=== PATIENT | male | born 1970 | race Caucasian/White ===

== ENCOUNTER 2023-10-28 15:19 | Emergency (ER) | payer BC, SELFPAY ==
[2023-10-28 15:21] VITALS: BP 147/90
[2023-10-28 15:39] LABS: % Basophils 0.6 % (0-2); % Immature Granulocytes 0.3 % (0-0.5); % Lymphocytes 29.3 % (20.5-51.1); % Monocytes 10.4 % (1.7-9.3); % Neutrophils 57.4 % (42.2-75.2); Absolute Eosinophils 0.1 10^3/uL (0-0.7); Absolute Lymphocytes 2.1 10^3/uL (1.2-3.4); Absolute Monocytes 0.7 10^3/uL (0.1-0.6); Absolute Neutrophils 4.1 10^3/uL (1.4-6.5); Hematocrit 43.7 % (39.0-52.0); Hemoglobin 15.2 g/dL (13.0-18.0); Mean Corp Hgb Conc. 34.8 g/dL (33.0-37.0); Mean Corpuscular Hgb 31.7 pg (27.0-31.0); Mean Corpuscular Volume 91.2 fL (80.0-94.0); Mean Platelet Volume 9.3 fL (7.4-10.4); Nucleated Red Blood Cells % 0 % (-); Platelet Count 251 10^3/uL (130-400); Red Blood Cell Count 4.79 10^6/uL (4.70-6.10); Red Cell Dist. Width 12.3 % (11.5-14.5); White Blood Cell Count 7.1 10^3/uL (4.8-10.8)
[2023-10-28 15:51] LABS: ALT (SGPT) 60 U/L (0-50); AST (SGOT) 57 U/L (17-59); Albumin 4.4 g/dl (3.5-5.0); Alkaline Phosphatase 85 U/L (38-126); Blood Urea Nitrogen 19 mg/dl (9-20); Calcium 9.6 mg/dl (8.4-10.2); Carbon Dioxide 25 mmol/L (22-30); Chloride 103 mmol/L (98-107); Glucose 96 mg/dl (70-99); Potassium 4.6 mmol/L (3.5-5.1); Sodium 138 mmol/L (135-145); Total Bilirubin 0.5 mg/dl (0.2-1.3); Total Protein 7.4 g/dl (6.3-8.2); eGFR > 60.00
[2023-10-28 16:00] LABS: Troponin I < 0.012 ng/ml
[2023-10-28 19:41] VITALS: BP 159/85; BP 160/94; BP 165/98; PULSE 66; PULSE 67; PULSE 73
[2023-10-28 19:43] VITALS: BP 160/94
[2023-10-28 19:44] VITALS: BP 165/98
--- NOTE | 2023-10-28 19:46 | ED.GENMED ---
History of Present Illness
General
Chief Complaint: Fainting Sensation
Source: patient
Exam Limitations: none
Time Seen by Provider: 10/28/23 19:24
Travel History
Have you had any contact with someone who has COVID-19?: No
Do you have any symptoms of coronavirus? Fever > 100 degrees, chills, cough, shortness of breath, sore throat, loss of taste or smell, muscle aches, or headache?: No
History of Present Illness
History of Present Illness:
This is a 53yo male who presents after he developed lightheadedness while doing light exercise. he states he was doing some stretching and 'moving around' and felt dizzy. he then developed tingling in his head. he states that the whole process
lasted about 10 minutes. no cp. no sob. no palpitations. now feels well. states that he actually felt well enough to not come to the ER but his wanted him to get checked out. Of note, patient has a history of A-fib and states it felt nothing
like prior A-fib. Patient admits that he did take his blood pressure at home and initially was a little high but he had been exercising and then it normalized. He now feels well. Offers no complaints of numbness or tingling or motor weakness. He
does admit for the last few nights he has not been sleeping well. He also admits the symptoms occurred after standing up and he felt reassured by that as he thought about it in the waiting room.
Past History
Past History
ED Past Medical History: Arrthythmia (Atrial fib, ), HTN, Hypercholesterolemia and Other (aortic aneurysm that they are watching)
ED Past Surgical History: None
Social History
Tobacco: Non-smoker
Alcohol: None
Personal:
Living: with family
Phy Exam
Physical Exam
Physical Exam:
CONSTITUTIONAL Patient alert and oriented to person, place and time. Well-appearing. Vital signs reviewed.
HEAD atraumatic, normocephalic.
EYES eyelids normal to inspection, Pupils equally round and reactive to light, Extraocular muscles intact, Conjunctiva normal, Sclera normal.
NECK normal range of motion, Trachea midline, no jugular venous distention.
RESPIRATORY CHEST No respiratory distress noted, Chest expansion equal, Bilateral breath sounds clear.
CARDIOVASCULAR regular rate and rhythm, Heart sounds normal.
ABDOMEN No distention.
BACK normal inspection, no obvious deformities
UPPER EXTREMITY range of motion normal, Motor strength normal, no cyanosis, no edema.
LOWER EXTREMITY range of motion normal, Motor strength normal, no cyanosis, no edema.
NEURO Speech normal, No focal motor deficits, [place] coma scale 15, Memory normal, Cranial Nerves intact to screening exam.
SKIN skin warm, dry, and normal in color.
PSYCHIATRIC patient oriented to person place and time, Normal affect.
Course
Orders/Labs/Results
Orders:
Orders
10/28/23 15:23
Electrocardiogram (*1) Urgent
Reason for Study: Fatigue / Weakness
EKG- Treatment ONCE
10/28/23 15:30
Complete Blood Count/With Diff Urgent
Comprehensive Metabolic Panel Urgent
Troponin I Urgent
10/28/23 19:48
Troponin I Urgent
Abnormal Lab Results
10/28/23
15:30
MCH 31.7 H pg
(27.0-31.0)
Absolute Monos (auto) 0.7 H 10^3/uL
(0.1-0.6)
Monocytes % 10.4 H %
(1.7-9.3)
ALT 60 H U/L
(0-50)
10/28/23 15:30
10/28/23 15:30
Vital Signs
Initial and Last Documented VS:
Initial Vital Signs
Temp Pulse Resp BP Pulse Ox
98.2 F 70 18 147/90 97
10/28/23 15:21 10/28/23 15:21 10/28/23 15:21 10/28/23 15:21 10/28/23 15:21
Last Documented Vital Signs
Temp Pulse Resp BP Pulse Ox
98.2 F 67 18 135/90 96
10/28/23 15:21 10/28/23 20:00 10/28/23 20:00 10/28/23 20:00 10/28/23 19:44
MDM/Problems Addressed
MDM/Problems Addressed:
Dizziness
*Pulse Oximetry
Patient hypoxic: no
*EKG
Interpreted by ED Provider?: Yes
Interpretation: abnormal
Comparison EKG: no changes
Rate: normal
Rhythm: sinus
QRS Pattern: right bundle branch block
Ischemia: no ischemia
*Chopper Feeder Interpretation
Rate: normal
Interpretation: normal
Rhythm: sinus
*Critical Care Note
Total Time (30-74mins, 75-104mins- exclusive of procedures): Not Applicable
Data Reviewed
Source: patient
Further Testing Considered But Not Given:
Consider chest CT but no clinical concern for PE or aortic pathology
Patient Management
Escalation/DeEscalation of care consider admission/obs:
Patient denies a true Valsalva while. I do not suspect dissection. I do not suspect acute aortic pathology. He is a bit hypertensive and he will follow-up closely with this. I asked for follow-up in the avoidance of strenuous or exertional
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 All symptoms have resolved. His neurologic assessment is normal. His pupils are normal. EKG unremarkable. Labs grossly unremarkable.
ED Attending Note
-
Portions of this chart may have been created with voice recognition software.� Occasional wrong word or��sound alike� substitutions may have occurred due to the inherent limitations of voice recognition software.
Discharge Plan
Departure
Patient Disposition: Home (Routine Discharge)
Date of Disposition: 10/28/23
Time of Disposition: 20:40
Patient with high blood pressure during this ER visit?: Yes
Discharge Problem:
Dizziness
Instructions: Dizziness
Referrals:
Matthew Zhao, [Family Provider] -
Activity Restrictions/Additional Instructions:
Your blood pressure was elevated while in the Emergency Department, please have your doctor re-evaluate it in the next 48 hours as untreated hypertension may lead to serious complications.
Please avoid strenuous or exertional activity until seen and cleared by your doctor or fire battalion chief. Return immediately for chest pain, shortness of breath, palpitations, weakness of any kind, vision changes, numbness, tingling or any other
concerns.
Interventions
Interventions:
*Risk Screen - Suicide Last Done: 10/28/23 15:21
*General Assessment Last Done: 10/28/23 15:21
*Neglect/Abuse Screening Last Done: 10/28/23 15:21
ED- Fall Risk Assessment Last Done: 10/28/23 19:31
*ED COVID-19 Vaccine History Last Done: 10/28/23 15:21
ED- Cardiac Assessment Last Done: 10/28/23 19:31
ED- Neurological Assessment Last Done: 10/28/23 19:31
[2023-10-28 20:00] VITALS: BP 135/90
[2023-10-28 20:23] LABS: Troponin I < 0.012 ng/ml
== END 2023-10-28 21:03 | disposition home or self-care (01) ==
LOC: EMR 15:19
PROVIDERS: Emergency Medicine; EMERGENCY PHYSICIAN Emergency Medicine; FAMILY PHYSICIAN Family Medicine
DX: R42 Dizziness and giddiness (principal); R20.2 Paresthesia of skin; I10 Essential (primary) hypertension
CPT/HCPCS: 99284; 80053; 84484; 85025; 93005

== ENCOUNTER → 2024-08-25 08:00 | Outpatient (REF) | payer BC, SELFPAY | LOC: HWRCS 08:00 | PROVIDERS: ATTENDING PHYSICIAN Internal Medicine Cardiovascular Disease; FAMILY PHYSICIAN Family Medicine | DX: I48.91 Unspecified atrial fibrillation (principal); R06.02 Shortness of breath | CPT/HCPCS: 93306 ==

== ENCOUNTER 2024-10-16 17:28 | Emergency (ER) | payer OTHER, SELFPAY ==
[2024-10-16 17:29] VITALS: BP 182/99
--- NOTE | 2024-10-16 19:32 | ED.SKININJ ---
HPI-Injury
General
Chief Complaint: Skin Surface Trauma
Source: patient
Exam Limitations: none
Time Seen by Provider: 10/16/24 18:50
Nursing documentation reviewed up to this point in time: agreed with
History of Present Illness-Injury
Is this injury a work related problem?: Yes
Is pt an associate of [facility]/[place]?: No
Initial Injury comments:
Accidentally cut finger with pocket knife. Has lac to right distal index finger. 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
Past History
Past History
ED Past Medical History: Arrthythmia (Atrial fib, ), HTN, Hypercholesterolemia and Other (aortic aneurysm that they are watching)
ED Past Surgical History: None
Social History
Tobacco: Non-smoker
Alcohol: None
Personal:
Living: with family
Review of Systems
Review of Systems
Allergies reviewed?: Yes
All Other Systems: ROS reviewed and negative except as documented in HPI and ROS
Constitutional: Reports no symptoms
Musculoskeletal: Reports no symptoms
Skin: Reports other (laceration to right distal index finger)
Neurological: Reports no symptoms
Psychiatric: Reports no symptoms
Skin Exam
Laceration
Right Distal Second Finger:
Length in cm: 2
Orientation: L shaped
Type of Laceration: simple
Any active bleeding?: low grade venous oozing
Distal skin color and temperature: normal-warm & good color
Normal distal neurovascular exam: Yes
Range of motion: full
Phy Exam
General Physical Exam
General Presentation: well appearing
General age: appears stated age
General Skin: warm and dry
General Habitus: normal
General Mental: alert
Musculoskeletal Exam
Musculoskeletal Exam: full ROM and neuro vasc intact
Skin Exam
Skin Exam: normal color, warm/dry and no rash
Psychiatric Exam
Psychiatric Exam: normal mood/affect
Course
Orders/Labs/Results
Orders:
Orders
10/16/24 19:32
Tetanus/Diphth/Acelpertussis [Adacel] 0.5 ml IM .ONCE ONE
10/16/24 19:59
Doxycycline [Vibramycin] 100 mg PO NOW STA
Vital Signs
Initial and Last Documented VS:
Initial Vital Signs
Temp Pulse Resp BP Pulse Ox
98.4 F 79 16 182/99 95
10/16/24 17:29 10/16/24 17:29 10/16/24 17:29 10/16/24 17:29 10/16/24 17:29
Last Documented Vital Signs
Temp Pulse Resp BP Pulse Ox
98.4 F 79 16 182/99 95
10/16/24 17:29 10/16/24 17:29 10/16/24 17:29 10/16/24 17:29 10/16/24 17:29
Procedures
Laceration Closure
Right Distal Second Finger:
Status of Wound: clean
Description of Wound Edges: sharp
Preparation: cleaned with saline and cleaned with Betadine
Anesthesia: 1% Lidocaine and Digital-Regional
Revision/Debridement: routine- no revision
Wound exploration: explored to base- no FB
Type of Closure: single layer closure
Skin Closure Material: 5-0 prolene
*Critical Care Note
Total Time (30-74mins, 75-104mins- exclusive of procedures): Not Applicable
ED Attending Note
-
Portions of this chart may have been created with voice recognition software.� Occasional wrong word or��sound alike� substitutions may have occurred due to the inherent limitations of voice recognition software.
Discharge Plan
Departure
Patient Disposition: Home (Routine Discharge)
Date of Disposition: 10/16/24
Time of Disposition: 19:59
Patient with high blood pressure during this ER visit?: No
Condition: Good
Covid-19: Not Applicable
Discharge Problem:
Finger laceration
Instructions: Laceration Repair With Stitches (DC)
Prescriptions:
New
doxycycline hyclate 100 mg tablet
100 mg PO BID Qty: 10 0RF
Referrals:
Matthew Zhao, DO [Family Provider] -
Stand Alone Forms: Return to Work
Activity Restrictions/Additional Instructions:
Follow up with your workman's comp provider in the AM. SUtures can be removed by your workman's comp provider in 7-10 days.
Interventions
Interventions:
*Risk Screen - Suicide Last Done: 10/16/24 17:36
*General Assessment Last Done: 10/16/24 20:27
*Neglect/Abuse Screening Last Done: 10/16/24 17:36
*ED COVID-19 Vaccine History Last Done: 10/16/24 17:36
*Nursing Disposition Last Done: 10/16/24 20:27
ED-Skin Assessment Last Done: 10/16/24 17:36
Discharge Date and Time
Discharge Date/Time: 10/16/24 20:28
Print Language: OCCITAN
[2024-10-16] MEDS: VIBRAMYCIN 100 MG PO (20:08)
[2024-10-16] MEDS: ADACEL 0.5 ML IM (20:09)
== END 2024-10-16 20:28 | disposition home or self-care (01) ==
LOC: EMR 17:28
PROVIDERS: EMERGENCY PHYSICIAN Emergency Medicine; FAMILY PHYSICIAN Family Medicine
DX: S61.210A Laceration without foreign body of right index finger without damage to nail, initial encounter (principal); W26.0XXA Contact with knife, initial encounter; Y99.0 Civilian activity done for income or pay; I10 Essential (primary) hypertension; E78.00 Pure hypercholesterolemia, unspecified; Z23 Encounter for immunization
CPT/HCPCS: 12001; 90471; 99282; 90715